=== PATIENT | male | born 1990 | race Caucasian/White ===

== ENCOUNTER 2021-12-22 18:24 | Emergency (ER) | payer OTHER ==
[2021-12-22] MEDS ORDERED: Sodium Chloride 0.9% 10 ML Syringe FLUSH PRN (19:12)
[2021-12-22] MEDS ORDERED: LORazepam 2 MG/ML SDV IVPUSH ONE (19:12)
[2021-12-22] MEDS ORDERED: Metoclopramide 10 MG/2 ML SDV IVPUSH ONE (19:12)
[2021-12-22] MEDS ORDERED: Sodium Chloride 0.9% 1,000 ML IV ONE ×2 (19:12→20:45)
[2021-12-22] MEDS ORDERED: LORazepam 2 MG/ML SDV IVPUSH PRN (21:41)
[2021-12-22] MEDS ORDERED: Lactated Ringers 1,000 ML IV ONE (22:08)
== END 2021-12-23 12:15 | disposition home or self-care (01) ==
LOC: JD.ED 18:24
DX: F10.129 Alcohol abuse with intoxication, unspecified (principal); F17.210 Nicotine dependence, cigarettes, uncomplicated; Y90.2 Blood alcohol level of 40-59 mg/100 ml
CPT/HCPCS: 36415; 80053; 80307; 83735; 85025; 85610; 99284; J2060; J2765; J3490; J7030; J7120; 99282